=== PATIENT | female | born 1990 ===

== ENCOUNTER 2022-12-24 06:20 | Inpatient (IN) | payer BC ==
[2022-12-24] MEDS ORDERED: PROMETHAZINE HCL 25 MG/1 ML VIAL IVPB ONE (07:44)
[2022-12-24] MEDS ORDERED: BUTORPHANOL TARTRATE 1 MG/ML VIAL IVPB ONE (07:44)
[2022-12-24] MEDS ORDERED: OXYTOCIN 30 UNITS in 0.9% NS 30 UNIT/500 ML INFUS.BAG IVPB SCH (08:00)
[2022-12-24 08:03] VITALS: BMI 27.9
[2022-12-24] MEDS: ELECTROLYTE-148 SOLN 1,000 ML IV SCH ×3 (08:15→18:45)
[2022-12-24] MEDS ORDERED: OXYTOCIN 30 UNITS in 0.9% NS 30 UNIT/500 ML INFUS.BAG IVPB ONE (08:56)
[2022-12-24 09:53] LABS: INR 0.97 (0.83-1.09); PROTHROMBIN TIME (PATIENT) 11.3 SEC (9.7-13.0)
[2022-12-24 09:56] LABS: ACTIVATED PTT 23.6 SECONDS (25.2-36.5)
[2022-12-24 10:02] LABS: BASO % 0.4 % (0-2.0); EOS % 0.5 % (0-4.5); HEMOGLOBIN 10.7 GM/dL (10.7-15.3); LYMPH % 16.9 % (8-40); MCH 24.7 pg (25.7-33.7); MCHC 31.6 g/dl (32.0-36.0); MEAN CELL VOLUME 78.3 fl (80-96); MEAN PLT VOLUME 10.1 fl (7.5-11.1); MONO % 6.2 % (3.8-10.2); PLATELET COUNT 144 10^3/uL (134-434); RBC 4.35 M/mm3 (3.60-5.2); WHITE BLOOD COUNT 9.9 K/mm3 (4.0-10.0)
[2022-12-24 10:50] LABS: POTASSIUM 3.9 mmol/L (3.5-5.1)
[2022-12-24 10:52] LABS: CALCIUM 8.2 mg/dL (8.5-10.1)
[2022-12-24 10:53] LABS: BLOOD UREA NITROGEN 10.6 mg/dL (7-18)
[2022-12-24 10:56] LABS: CREATININE 0.5 mg/dL (0.55-1.3)
[2022-12-24 11:49] LABS: HIV INTERPRETATION NEGATIVE (NEGATIVE)
[2022-12-24] MEDS ORDERED: PROMETHAZINE HCL 25 MG/1 ML VIAL ONE (15:26)
[2022-12-24] MEDS ORDERED: BUTORPHANOL TARTRATE 1 MG/ML VIAL ONE (15:26)
[2022-12-24] MEDS ORDERED: FENTANYL/BUPIVACAINE/NS/PF - PCEA - 50 ML DISP.SYRIN EP ONE (17:45)
[2022-12-24] MEDS ORDERED: NALOXONE HCL 0.4 MG/ML VIAL IVPUSH PRN (17:50)
[2022-12-24] MEDS ORDERED: BUPIVACAINE HCL/PF 0.25% (2.5MG/ML) 10 ML VIAL ONE (17:52)
[2022-12-24] MEDS ORDERED: LIDO 2%/EPI 1:200000 PRESRVFRE (20 ML SDVIAL) ONE (17:52)
[2022-12-24] MEDS ORDERED: FENTANYL/BUPIVACAINE/NS/PF - PCEA - 50 ML DISP.SYRIN EP SCH (18:00)
[2022-12-24] MEDS ORDERED: OXYTOCIN 20 UNITS in 0.9% NS 20 UNIT/1,000 ML INFUS.BAG IV ONE (22:55)
[2022-12-25] MEDS ORDERED: ACETAMINOPHEN INJECTION 100 ML IVPB ONE (00:04)
[2022-12-25] MEDS ORDERED: CLINDAMYCIN 900 MG PREMIX IVPB 900 MG/50 ML BAG IVPB ONE ×2 (00:21→01:00)
[2022-12-25] MEDS ORDERED: GENTAMICIN SO4 80 MG/2 ML VIAL ONE (00:29)
[2022-12-25] MEDS ORDERED: AMPICILLIN SODIUM 2 GM VIAL ONE (00:30)
[2022-12-25] MEDS ORDERED: ACETAMINOPHEN 1000 MG/100 ML BAG IVPB ONE (00:38)
[2022-12-25] MEDS ORDERED: GENTAMICIN 80 MG PREMIXED IVPB 80 MG/100 ML BAG IVPB ONE (01:30)
[2022-12-25] MEDS ORDERED: AMPICILLIN - 2 GM in SODIUM CHLORIDE 100 ML IVPB ONE (02:00)
[2022-12-25] MEDS ORDERED: BENZOCAINE 28 GM HEMORRHOIDAL OINTMENT TP PRN (02:37)
[2022-12-25] MEDS ORDERED: BENZOCAINE 20% 57 GM BOTTLE TP PRN (02:37)
[2022-12-25] MEDS ORDERED: METHYLERGONOVINE MALEATE 0.2 MG/1 ML AMP IM PRN (02:37)
[2022-12-25] MEDS ORDERED: WITCH HAZEL 50% (TUCKS) 40 PAD/JAR PAD TP PRN (02:37)
[2022-12-25] MEDS ORDERED: BISACODYL 10 MG SUPP.RECT RC PRN (02:37)
[2022-12-25] MEDS ORDERED: IBUPROFEN 600 MG TABLET (FP) PO PRN (02:37)
[2022-12-25] MEDS ORDERED: ACETAMINOPHEN 325 MG TABLET (FP) PO PRN (02:37)
[2022-12-25 02:43] LABS: CORD HCO3 19.3 mmHg (20-29); CORD PCO2 37.9 mmHg (30-78); CORD pH 7.324 (7.14-7.44)
[2022-12-25] MEDS ORDERED: OXYTOCIN 20 UNITS in 0.9% NS 20 UNIT/1,000 ML INFUS.BAG IV SCH (02:45)
[2022-12-26 08:32] LABS: BASO % 0.4 % (0-2.0); EOS % 0.6 % (0-4.5); HEMATOCRIT 27.4 % (32.4-45.2); HEMOGLOBIN 8.7 GM/dL (10.7-15.3); LYMPH % 13.5 % (8-40); MCH 24.9 pg (25.7-33.7); MCHC 31.8 g/dl (32.0-36.0); MEAN CELL VOLUME 78.4 fl (80-96); MONO % 4.4 % (3.8-10.2); NEUT % 81.1 % (42.8-82.8); PLATELET COUNT 123 10^3/uL (134-434); RBC 3.49 M/mm3 (3.60-5.2); RDW 18.9 % (11.6-15.6)
[2022-12-26] MEDS ORDERED: SENNOSIDES/DOCUSATE COMBO (SENNA PLUS) TABLET (UD) PO PRN (22:00)
[2022-12-27 08:48] VITALS: BP 110/71; PULSE 76; RESP 16; TEMP 98.1
== END 2022-12-27 13:24 | disposition home or self-care (01) | DRG 807 ==
LOC: JLDR 06:20 → J3W 12-25 03:30
PROVIDERS: ADMIT Obstetrics & Gynecology; ATTEND Obstetrics & Gynecology
PROC: 3E033VJ Introduction of Other Hormone into Peripheral Vein, Percutaneous Approach (ICD-10-PCS; 2022-12-24)
PROC: 10E0XZZ Delivery of Products of Conception, External Approach (ICD-10-PCS; principal; 2022-12-25)
PROC: 0KQM0ZZ Repair Perineum Muscle, Open Approach (ICD-10-PCS; 2022-12-25)
DX: O48.0 Post-term pregnancy (principal); Z37.0 Single live birth; O70.1 Second degree perineal laceration during delivery; Z3A.40 40 weeks gestation of pregnancy
CPT/HCPCS: 36415; 36600; 80048; 82803; 85025; 85610; 85730; 86780; 86850; 86900; 86901; 87389